=== PATIENT | male | born 1950 | race Native Hawaiian/Other Pacific Islander ===

== ENCOUNTER 2017-05-21 11:13 | Inpatient (IN) | payer OTHER, BC ==
[~2017-05-21] VITALS: Ht 167.6 cm; Wt 87.6 kg
[2017-05-21 11:10] VITALS: BP 200/95; TEMP 98
[2017-05-21 11:36] LABS: PLATELET COUNT 143 K/uL (142-355)
[2017-05-21 11:48] VITALS: BP 152/97
[2017-05-21 11:51] LABS: PARTIAL THROMBOPLASTIN TIME 28.3 SECONDS (24.5-33.6)
[2017-05-21 13:00] VITALS: BP 159/91
[2017-05-21 15:12] VITALS: BP 191/99; TEMP 97.7; Ht 167.6 cm; Wt 87.6 kg
[2017-05-21 16:00] VITALS: BP 154/68; TEMP 98
[2017-05-21 20:00] VITALS: BP 143/90; TEMP 97.6
[2017-05-22] VITALS: BP 132/81; TEMP 98.7
[2017-05-22 04:00] VITALS: BP 128/75; TEMP 98.6
[2017-05-22 08:33] VITALS: BP 133/85; TEMP 97.8
== END 2017-05-22 14:05 | disposition short-term general hospital (02) | DRG 282 ==
LOC: ED 11:13 → MED/SURG 12:45
PROVIDERS: Internal Medicine
DX: I21.4 Non-ST elevation (NSTEMI) myocardial infarction (principal); R10.13 Epigastric pain
CPT/HCPCS: 36415; 80053; 80061; 82550; 83036; 84484; 85027; 85610; 85730; 93005; 96372; 99284; J1650

== ENCOUNTER 2017-05-22 14:08 | Outpatient (CLI) | payer OTHER, BC | END 2017-05-22 15:22 | disposition short-term general hospital (02) | LOC: AMB 14:08 | DX: I21.4 Non-ST elevation (NSTEMI) myocardial infarction (principal); R10.13 Epigastric pain | CPT/HCPCS: A0425; A0427 ==

== ENCOUNTER 2021-03-06 16:03 | Emergency (ER) | payer OTHER ==
[~2021-03-06] VITALS: Ht 167.6 cm; Wt 88.5 kg
[2021-03-06 17:39] LABS: PLATELET COUNT 141 K/uL (142-355)
[2021-03-06 18:01] LABS: PARTIAL THROMBOPLASTIN TIME 22.4 SECONDS (24.5-33.6)
[2021-03-06 20:55] VITALS: BP 139/72; TEMP 97.9
== END 2021-03-06 20:55 | disposition short-term general hospital (02) ==
LOC: ED 16:03
PROVIDERS: Emergency Medicine
PROC: 0T9B70Z Drainage of Bladder with Drainage Device, Via Natural or Artificial Opening (ICD-10-PCS; principal; 2021-03-06)
DX: S32.028A Other fracture of second lumbar vertebra, initial encounter for closed fracture (principal); S00.532A Contusion of oral cavity, initial encounter; S20.219A Contusion of unspecified front wall of thorax, initial encounter; Z98.890 Other specified postprocedural states; S37.092A Other injury of left kidney, initial encounter; S37.091A Other injury of right kidney, initial encounter; E86.0 Dehydration; I25.10 Atherosclerotic heart disease of native coronary artery without angina pectoris; R07.89 Other chest pain; S00.33XA Contusion of nose, initial encounter; Z11.52 Encounter for screening for COVID-19; W13.2XXA Fall from, out of or through roof, initial encounter; Y92.098 Other place in other non-institutional residence as the place of occurrence of the external cause
CPT/HCPCS: 51702; 80048; 81000; 85027; 85610; 85730; 87635; 90471; 90715; 93005; 96360; 96361; 96375; 99285; J1885; J2405; J2550; U0003

== ENCOUNTER 2021-05-11 08:53 | Outpatient (CLI) | payer OTHER, BC | END 2021-05-11 19:17 | disposition home or self-care (01) | LOC: MRI 08:53 | PROVIDERS: ATTEND Urology | DX: N28.89 Other specified disorders of kidney and ureter (principal) | CPT/HCPCS: 36415; 82565; 84520; A9576 ==

== ENCOUNTER 2022-05-26 08:30 | Outpatient (CLI) | payer OTHER, BC | END 2022-05-26 22:24 | disposition home or self-care (01) | LOC: RESP 08:30 | PROVIDERS: ATTEND Internal Medicine Cardiovascular Disease | DX: I10 Essential (primary) hypertension (principal) ==